=== PATIENT | male | born 1950 | race Hispanic/Latino ===

== ENCOUNTER 2019-11-09 03:21 | Inpatient (IN) | payer OTHER ==
[~2019-11-09] VITALS: Ht 154.9 cm; Wt 48.4 kg
[2019-11-09 03:25] VITALS: BP 147/92
[2019-11-09 05:30] LABS: HEMATOCRIT 28.3 % (42-54); MEAN CORPUSCULAR HEMOGLOBIN 29.4 pg (27.0-33.0); MEAN CORPUSCULAR HGB CONC 33.6 g/dL (32.0-36.0); MEAN CORPUSCULAR VOLUME 87.6 fL (79-99); PLATELET COUNT (AUTO) 172 K/uL (130-400); RED BLOOD CELL COUNT(AUTO) 3.23 MIL/uL (4.50-6.20); RED CELL DISTRIBUTION WIDTH 15.3 % (11.0-15.5); WHITE BLOOD COUNT (AUTO) 10.3 K/uL (4.8-10.8)
[2019-11-09 05:33] LABS: HEMOGLOBIN A1C 6.7 % (4.0-6.0)
[2019-11-09 05:34] LABS: INR 0.88 (0.85-1.15); PARTIAL THROMBOPLASTIN TIME 30.3 SEC (26.3-35.5); PROTHROMBIN TIME 9.5 SEC (9.6-11.6)
[2019-11-09 05:40] LABS: ALBUMIN 2.6 g/dL (3.5-5.0); BILIRUBIN,TOTAL 0.2 mg/dL (0.2-1.0); CREATININE 1.4 mg/dL (0.5-1.5); POTASSIUM 3.7 mmol/L (3.5-5.1); TOTAL PROTEIN, SERUM 5.4 g/dL (6.0-8.3)
[2019-11-09 05:55] LABS: B-TYPE NATRIURETIC PEPTIDE 1560 pg/mL (0-100)
[2019-11-09] MEDS ORDERED: METOPROLOL TARTRATE 25 MG TAB PO SCH (07:30)
[2019-11-09 08:00] VITALS: BP 196/100
[2019-11-09] MEDS ORDERED: CEFAZOLIN SODIUM 1 GM VIAL IVP PRN (08:00)
[2019-11-09 08:05] VITALS: BP 168/88
[2019-11-09 08:15] LABS: ABG BASE EXCESS 5.7 mmol/L (-2.0-3.0); ABG HCO3 31.1 mmol/L (21.0-28.0); ABG OXYGEN SATURATION 97.1 % (95.0-99.0); ABG PCO2 48 mmHg (35-48)
[2019-11-09] MEDS ORDERED: METHYLPREDNISOLONE SOD SUCC 125MG/2ML VIAL IVP SCH (09:30)
[2019-11-09] MEDS ORDERED: FUROSEMIDE 10 MG/ML 4ML VIAL IV SCH (10:00)
[2019-11-09] MEDS: ASPIRIN 325MG EC TAB 325 MG TABLET.DR PO SCH (11:01)
[2019-11-09 12:01] VITALS: BP 128/93
[2019-11-09 16:12] VITALS: BP 153/97
--- NOTE | 2019-11-09 17:12 | NUR ---
DC PLAN VISITED WITH PATIENT. PATIENT LIVES WITH SPOUSE. INDEPENDENT ABLE TO PERFORM ADL'S. PATIENT HAS NO SERVICES OR DME'S. PATIENT TRANSFER FROM [facility] FOR CABG BUT HAVING SOB ON . PER PATIENT DOES GO TO A CLINIC BUT CAN NOT REMEMBER WHERE. PATIENT IS UNDOCUMENTED NO MEDICARE. GAVE LOW INCOME CLINIC INFO AND MEDICATION INFORMATION. Addendum: 11/09/19 at 1714 by LUKAS ABDI RN CM Amended: Links added.
[2019-11-09] MEDS: METHYLPREDNISOLONE SOD SUCC 40MG/ML 1ML IVP SCH ×2 (17:51→23:37)
[2019-11-09] MEDS: FUROSEMIDE 10 MG/ML 4ML VIAL IV SCH (17:52)
[2019-11-09 19:40] VITALS: BP 160/72
[2019-11-09 20:28] LABS: ABG BASE EXCESS 3.1 mmol/L (-2.0-3.0); ABG HCO3 26.3 mmol/L (21.0-28.0); ABG OXYGEN SATURATION 98.6 % (95.0-99.0); ABG PCO2 36 mmHg (35-48)
[2019-11-09] MEDS ORDERED: FAMOTIDINE 20MG TAB 20 MG TAB PO SCH (21:00)
[2019-11-10] VITALS (69 sets, daily range): BP systolic 68–213; BP diastolic 37–204
[2019-11-10 03:43] LABS: BASOPHILS % (AUTO) 0.1 % (0.0-5.0); MEAN CORPUSCULAR HEMOGLOBIN 29.8 pg (27.0-33.0); MEAN CORPUSCULAR VOLUME 87.7 fL (79-99); MONOCYTES % (AUTO) 1.7 % (3.0-13.0); NEUTROPHILS % (AUTO) 94.6 % (40.0-77.0); PLATELET COUNT (AUTO) 169 K/uL (130-400); RED BLOOD CELL COUNT(AUTO) 3.42 MIL/uL (4.50-6.20); RED CELL DISTRIBUTION WIDTH 15.1 % (11.0-15.5); WHITE BLOOD COUNT (AUTO) 9.3 K/uL (4.8-10.8)
[2019-11-10 03:56] LABS: CREATININE 1.5 mg/dL (0.5-1.5); MAGNESIUM 2.1 mg/dL (1.80-2.40); POTASSIUM 4.1 mmol/L (3.5-5.1)
[2019-11-10] MEDS: FUROSEMIDE 10 MG/ML 4ML VIAL IV SCH (05:27)
--- NOTE | 2019-11-10 06:17 | NUR ---
patient alert and oriented. Denies chest pain or sob. Resting comfortably. NC 1-2L, 02 sats 100%. Will continue to monitor. Did use Bipap during the night a few hours.
[2019-11-10] MEDS ORDERED: NOREPINEPHRINE BITARTRATE 8 MG in DEXTROSE 5%-WATER 250 ML IV PRN (06:30)
[2019-11-10] MEDS ORDERED: EPINEPHRINE 10 MG in SODIUM CHLORIDE 0.9% 240 ML IV PRN (06:30)
[2019-11-10] MEDS ORDERED: AMINOCAPROIC ACID 15,000 MG in SODIUM CHLORIDE 0.9% 500ML 420 ML IV PRN (06:30)
[2019-11-10] MEDS ORDERED: PAPAVERINE HCL 30 MG/ML 2ML VIAL ONE (06:52)
[2019-11-10] MEDS ORDERED: CEFAZOLIN SODIUM 1 GM VIAL ONE (06:52)
[2019-11-10] MEDS ORDERED: SODIUM CHLORIDE 0.9% 1000ML 1,000 ML IV ONE (07:10)
[2019-11-10] MEDS ORDERED: EPINEPHRINE 1 MG/ML AMPULE ONE (07:37)
[2019-11-10] MEDS ORDERED: ESMOLOL HCL 10 MG/ML 10 ML VIAL ONE ×2 (07:37→07:39)
[2019-11-10] MEDS ORDERED: HEPARIN SODIUM 1000UNIT/ML 10ML VIAL ONE (07:37)
[2019-11-10] MEDS ORDERED: AMINOCAPROIC ACID 250 MG/ML 20 ML VIAL IV ONE (07:37)
[2019-11-10] MEDS ORDERED: LIDOCAINE PF 2% 5ML ABBOJECT ONE (07:37)
[2019-11-10] MEDS ORDERED: NOREPINEPHRINE BITARTRATE 1 MG/1 ML ML IV ONE (07:37)
[2019-11-10] MEDS ORDERED: PROTAMINE SULFATE 10 MG/ML 25ML VIAL IV ONE (07:37)
[2019-11-10] MEDS ORDERED: PROPOFOL 10 MG/ML 20ML VIAL IV ONE (07:37)
[2019-11-10] MEDS ORDERED: SODIUM BICARB 50MEQ 50ML VIAL ONE (07:37)
[2019-11-10] MEDS ORDERED: FENTANYL CITRATE PF 50 MCG/1 ML 20ML VIAL IJ ONE (07:38)
[2019-11-10] MEDS ORDERED: ROCURONIUM 10MG/1ML SYR 10 MG/ML ML ONE (07:38)
[2019-11-10] MEDS ORDERED: MIDAZOLAM HCL 1 MG/ML 2ML VIAL ONE (07:38)
[2019-11-10] MEDS ORDERED: ETOMIDATE 2 MG/ML 10 ML VIAL ONE (07:39)
[2019-11-10] MEDS ORDERED: AMIODARONE HCL 50 MG/ML 3 ML VIAL ONE (07:39)
[2019-11-10] MEDS ORDERED: VASOPRESSIN 20 UNITS/ML 1ML VIAL ONE (07:40)
[2019-11-10] MEDS ORDERED: GLYCOPYRROLATE 1 MG/5 ML SYRINGE ONE (07:46)
[2019-11-10] MEDS: METHYLPREDNISOLONE SOD SUCC 40MG/ML 1ML IVP SCH ×2 (08:00→15:27)
[2019-11-10 08:53] LABS: ABG BASE EXCESS 6.4 mmol/L (-2.0-3.0); ABG HCO3 29.6 mmol/L (21.0-28.0); ABG OXYGEN SATURATION 99.2 % (95.0-99.0); ABG PCO2 37 mmHg (35-48)
[2019-11-10] MEDS ORDERED: SODIUM CHLORIDE 0.9% 500ML 500 ML IV SCH (08:58)
[2019-11-10] MEDS ORDERED: SODIUM CHLORIDE 0.9% 1000ML 1,000 ML IV SCH (09:00)
[2019-11-10] MEDS ORDERED: MORPHINE SULFATE 4 MG/1ML SYG IV PRN (09:00)
[2019-11-10] MEDS ORDERED: AMINOCAPROIC ACID 15,000 MG in SODIUM CHLORIDE 0.9% 250 ML IV SCH (09:00)
[2019-11-10] MEDS ORDERED: TRAMADOL HCL 50 MG TABLET PO PRN (09:00)
[2019-11-10] MEDS ORDERED: DEXTROSE 50%-WATER 50 ML DISP.SYRIN IV PRN (09:00)
[2019-11-10] MEDS ORDERED: MORPHINE SULFATE 2 MG/ML 1ML SYG IV PRN (09:00)
[2019-11-10] MEDS ORDERED: GLUCAGON 1MG KIT 1 MG ML IM PRN (09:00)
[2019-11-10] MEDS ORDERED: POTASSIUM PHOS 15 mMOL+NS250ML 250 ML IV PRN (09:00)
[2019-11-10] MEDS ORDERED: EPINEPHRINE 2 MG in DEXTROSE 5%-WATER 250 ML IV PRN (09:00)
[2019-11-10] MEDS ORDERED: ONDANSETRON HCL 4 MG/2 ML VIAL IV PRN (09:00)
[2019-11-10] MEDS ORDERED: INSULIN REGULAR, HUMAN 3ML 100 UNIT in SODIUM CHLORIDE 0.9% 99 ML IV SCH ×2 (09:00)
[2019-11-10] MEDS ORDERED: NOREPINEPHRINE 4MG/NS 250ML 250 ML IV PRN (09:00)
[2019-11-10] MEDS ORDERED: ACETAMINOPHEN 650 MG SUPPOSITORY RC PRN (09:00)
[2019-11-10] MEDS ORDERED: MAGNESIUM 2GM PREMIX 50ML 50 ML IV PRN (09:00)
[2019-11-10] MEDS ORDERED: ACETAMINOPHEN 325 MG TAB PO PRN ×2 (09:00)
[2019-11-10] MEDS ORDERED: NITROGLYCERIN 50 MG/D5% WATER 250 BOT IV SCH (09:00)
[2019-11-10] MEDS: FUROSEMIDE 20 MG TABLET PO SCH ×2 (09:00→16:19)
[2019-11-10] MEDS: FAMOTIDINE/PF 20 MG/2 ML VIAL IV SCH ×2 (09:00→21:03)
[2019-11-10] MEDS ORDERED: PROPOFOL 1000 MG/100 ML 100 ML IV PRN (09:00)
[2019-11-10] MEDS: ASPIRIN 325MG EC TAB 325 MG TABLET.DR PO SCH (09:00)
[2019-11-10] MEDS ORDERED: SODIUM CHLORIDE 0.9% 250 ML IV PRN (09:00)
[2019-11-10] MEDS ORDERED: ALBUMIN (HUMAN) 5% 250 ML IV PRN (09:00)
[2019-11-10] MEDS ORDERED: SODIUM CHLORIDE 0.9% 10 ML VIAL IVP PRN (09:00)
[2019-11-10] MEDS ORDERED: SODIUM BICARB 50MEQ 50ML VIAL IV PRN (09:00)
[2019-11-10] MEDS ORDERED: NITROGLYCERIN 50 MG/D5% WATER 1 BOT ONE (09:27)
[2019-11-10] MEDS ORDERED: OCTYL 2-CYANOACRYLATE 1 EACH TP ONE (10:06)
[2019-11-10 10:17] LABS: ABG BASE EXCESS 0.2 mmol/L (-2.0-3.0); ABG OXYGEN SATURATION 99.1 % (95.0-99.0); ABG PCO2 36 mmHg (35-48)
[2019-11-10] MEDS ORDERED: HEPARIN SODIUM 10000 UNIT/ML 1ML VIAL IJ ONE (10:41)
--- NOTE | 2019-11-10 11:00 | NUR ---
PATIENT ARRIVED FROM OR TO CVR 213. PATIENT INTUBATED, ARTERIAL LINE LEFT RADIAL, CHEST TUBES X2, OMER CATH, SWAN GAWNZ. IV DRIPS LEVOPHED, EPI, AMICAR. PATIENT SET UP IN ROOM.
[2019-11-10 11:19] LABS: HEMATOCRIT 26.1 % (42-54); MEAN CORPUSCULAR HGB CONC 34.1 g/dL (32.0-36.0); MEAN CORPUSCULAR VOLUME 87.9 fL (79-99); PLATELET COUNT (AUTO) 162 K/uL (130-400); RED BLOOD CELL COUNT(AUTO) 2.97 MIL/uL (4.50-6.20); RED CELL DISTRIBUTION WIDTH 15.3 % (11.0-15.5); WHITE BLOOD COUNT (AUTO) 16.9 K/uL (4.8-10.8)
[2019-11-10 11:31] LABS: INR 1.03 (0.85-1.15); PARTIAL THROMBOPLASTIN TIME 25.5 SEC (26.3-35.5); PROTHROMBIN TIME 11.1 SEC (9.6-11.6)
[2019-11-10 11:36] LABS: CREATININE 1.4 mg/dL (0.5-1.5); MAGNESIUM 1.7 mg/dL (1.80-2.40); PHOSPHORUS 4.8 mg/dL (2.5-4.9); POTASSIUM 3.2 mmol/L (3.5-5.1)
[2019-11-10 11:40] LABS: ABG HCO3 26.2 mmol/L (21.0-28.0); ABG PCO2 39 mmHg (35-48)
[2019-11-10] MEDS: POTASSIUM CHLORIDE 20MEQ/100ML 100 ML IV PRN ×2 (12:05→16:18)
[2019-11-10] MEDS: CEFAZOLIN SODIUM 1 GM VIAL IV SCH ×2 (13:32→21:03)
--- NOTE | 2019-11-10 14:45 | NUR ---
VENTILATOR WEANING TRIALS: SIMV RATE DROPPED TO 6. TOLERATED WELL.
--- NOTE | 2019-11-10 15:00 | NUR ---
VENTILATOR WEANING TRIALS: SIMV DROPPED TO 4, TOLERATING WELL.
--- NOTE | 2019-11-10 15:30 | NUR ---
VENTILATOR WEANING TRIALS: CPAP 10/5, TOLERATING WELL.
[2019-11-10 15:40] LABS: BASOPHILS % (AUTO) 0.1 % (0.0-5.0); HEMATOCRIT 26.3 % (42-54); LYMPHOCYTES % (AUTO) 4.8 % (21.0-51.0); MEAN CORPUSCULAR HEMOGLOBIN 29.2 pg (27.0-33.0); MEAN CORPUSCULAR HGB CONC 32.7 g/dL (32.0-36.0); MEAN CORPUSCULAR VOLUME 89.2 fL (79-99); MONOCYTES % (AUTO) 4.1 % (3.0-13.0); PLATELET COUNT (AUTO) 172 K/uL (130-400); RED BLOOD CELL COUNT(AUTO) 2.95 MIL/uL (4.50-6.20); RED CELL DISTRIBUTION WIDTH 15.4 % (11.0-15.5); WHITE BLOOD COUNT (AUTO) 25.4 K/uL (4.8-10.8)
--- NOTE | 2019-11-10 15:45 | NUR ---
VENTILATOR WEANING TRIALS: CPAP 5/5. TOLERATING WELL.
[2019-11-10 15:53] LABS: CREATININE 1.6 mg/dL (0.5-1.5); MAGNESIUM 2.9 mg/dL (1.80-2.40); POTASSIUM 3.4 mmol/L (3.5-5.1)
[2019-11-10 16:11] LABS: ABG BASE EXCESS 3.4 mmol/L (-2.0-3.0); ABG HCO3 27.9 mmol/L (21.0-28.0); ABG OXYGEN SATURATION 98.9 % (95.0-99.0); ABG PCO2 42 mmHg (35-48)
--- NOTE | 2019-11-10 16:45 | NUR ---
PATIENT COMPLETED VENTILATOR WEANING TRIALS. PATIENT EXTUBATED PER MD ORDER. PATIENT ON AN AEROSOL MASK 40%
[2019-11-10] MEDS: CALCIUM GLUCONATE 1 GM in SODIUM CHLORIDE 0.9% 50 ML IV PRN (18:20)
[2019-11-10 19:51] LABS: ABG BASE EXCESS 0.6 mmol/L (-2.0-3.0); ABG HCO3 25.2 mmol/L (21.0-28.0); ABG OXYGEN SATURATION 97.3 % (95.0-99.0); ABG PCO2 41 mmHg (35-48)
[2019-11-11] VITALS (85 sets, daily range): BP systolic 96–213; BP diastolic 45–113
[2019-11-11] MEDS: METHYLPREDNISOLONE SOD SUCC 40MG/ML 1ML IVP SCH ×4 (00:38→23:42)
[2019-11-11 04:56] LABS: HEMATOCRIT 24.7 % (42-54); MEAN CORPUSCULAR HEMOGLOBIN 29.4 pg (27.0-33.0); MEAN CORPUSCULAR HGB CONC 33.2 g/dL (32.0-36.0); MEAN CORPUSCULAR VOLUME 88.5 fL (79-99); PLATELET COUNT (AUTO) 139 K/uL (130-400); RED BLOOD CELL COUNT(AUTO) 2.79 MIL/uL (4.50-6.20); RED CELL DISTRIBUTION WIDTH 15.7 % (11.0-15.5); WHITE BLOOD COUNT (AUTO) 20.9 K/uL (4.8-10.8)
[2019-11-11 05:00] LABS: ABG BASE EXCESS 1.3 mmol/L (-2.0-3.0); ABG HCO3 25.2 mmol/L (21.0-28.0); ABG OXYGEN SATURATION 98.1 % (95.0-99.0); ABG PCO2 38 mmHg (35-48)
[2019-11-11 05:14] LABS: CREATININE 1.8 mg/dL (0.5-1.5); MAGNESIUM 2.5 mg/dL (1.80-2.40); PHOSPHORUS 5.3 mg/dL (2.5-4.9); POTASSIUM 4.3 mmol/L (3.5-5.1)
[2019-11-11] MEDS: CEFAZOLIN SODIUM 1 GM VIAL IV SCH (05:24)
[2019-11-11] MEDS: CALCIUM GLUCONATE 1 GM in SODIUM CHLORIDE 0.9% 50 ML IV PRN (05:26)
[2019-11-11 05:44] LABS: INR 0.94 (0.85-1.15); PARTIAL THROMBOPLASTIN TIME 27.9 SEC (26.3-35.5); PROTHROMBIN TIME 10.2 SEC (9.6-11.6)
[2019-11-11] MEDS ORDERED: METOPROLOL TARTRATE 25 MG TAB ONE (08:01)
[2019-11-11] MEDS: ASPIRIN 325MG EC TAB 325 MG TABLET.DR PO SCH (08:19)
[2019-11-11] MEDS: FUROSEMIDE 20 MG TABLET PO SCH ×2 (08:19→17:29)
[2019-11-11] MEDS: METOPROLOL TARTRATE 25 MG TAB PO SCH ×2 (08:19→21:02)
[2019-11-11] MEDS: FAMOTIDINE/PF 20 MG/2 ML VIAL IV SCH ×2 (08:20→21:02)
[2019-11-11] MEDS: HYDRALAZINE HCL 20 MG/ML VIAL IV PRN (13:36)
--- NOTE | 2019-11-11 14:09 | NUR ---
RD NOTIFICATION S/P CABG DUE TO CAD ON 11/09. PT RECOVERING COMFORTABLY AT TIME OF VISIT. DIET: CLEAR LIQUIDS/ CVR DIET. NO COMPLAINTS OF N/V/C/D AT THIS TIME. PT STATED HAVING DIFFICULTIES CHEWING FOOD DUE TO MISSING TEETH. SKIN IS INTACT. LABS AND MEDS REVIEWED. RD RECOMMENDS TO ADVANCE DIET TOLERATED MODIFY FOOD TEXTURE DUE TO MISSING TEETH; MECHANICAL SOFT/CHOPPED OR FINE CHOPPED PLZ RD WILL CONTINUE TO MONITOR AND FOLLOW UP, THANK YOU. Addendum: 11/11/19 at [address] Amended: Links added.
[2019-11-11] MEDS: TRAMADOL HCL 50 MG TABLET PO PRN (15:20)
[2019-11-11] MEDS: INSULIN HUMULIN R 100 UNIT/ML 3ML SQ SCH ×2 (15:57→21:00)
[2019-11-12] VITALS (18 sets, daily range): BP systolic 95–162; BP diastolic 57–95
[2019-11-12 04:12] LABS: HEMATOCRIT 21.7 % (42-54); MEAN CORPUSCULAR HEMOGLOBIN 30.2 pg (27.0-33.0); MEAN CORPUSCULAR HGB CONC 33.6 g/dL (32.0-36.0); MEAN CORPUSCULAR VOLUME 89.7 fL (79-99); PLATELET COUNT (AUTO) 105 K/uL (130-400); RED BLOOD CELL COUNT(AUTO) 2.42 MIL/uL (4.50-6.20); RED CELL DISTRIBUTION WIDTH 16.1 % (11.0-15.5); WHITE BLOOD COUNT (AUTO) 14.5 K/uL (4.8-10.8)
[2019-11-12 04:24] LABS: POTASSIUM 4.6 mmol/L (3.5-5.1)
[2019-11-12] MEDS: INSULIN HUMULIN R 100 UNIT/ML 3ML SQ SCH ×4 (06:26→20:48)
[2019-11-12] MEDS: METOPROLOL TARTRATE 25 MG TAB PO SCH ×2 (08:35→20:40)
[2019-11-12] MEDS: METHYLPREDNISOLONE SOD SUCC 40MG/ML 1ML IVP SCH ×3 (08:35→23:35)
[2019-11-12] MEDS: FAMOTIDINE/PF 20 MG/2 ML VIAL IV SCH ×2 (08:35→20:44)
[2019-11-12] MEDS: FUROSEMIDE 20 MG TABLET PO SCH (08:35)
[2019-11-12] MEDS: ASPIRIN 325MG EC TAB 325 MG TABLET.DR PO SCH (08:36)
[2019-11-12] MEDS: SODIUM CHLORIDE 0.9% 1000ML 1,000 ML IV SCH ×2 (09:00→20:45)
[2019-11-12] MEDS: ATORVASTATIN CALCIUM 20 MG TABLET PO SCH (20:40)
[2019-11-13] VITALS (7 sets, daily range): BP systolic 121–175; BP diastolic 61–92
[2019-11-13 05:19] LABS: HEMATOCRIT 21.5 % (42-54); MEAN CORPUSCULAR HEMOGLOBIN 29.6 pg (27.0-33.0); PLATELET COUNT (AUTO) 111 K/uL (130-400); RED BLOOD CELL COUNT(AUTO) 2.47 MIL/uL (4.50-6.20); WHITE BLOOD COUNT (AUTO) 13.8 K/uL (4.8-10.8)
[2019-11-13 05:39] LABS: CREATININE 1.9 mg/dL (0.5-1.5); MAGNESIUM 2.2 mg/dL (1.80-2.40); POTASSIUM 4.4 mmol/L (3.5-5.1)
[2019-11-13] MEDS: INSULIN HUMULIN R 100 UNIT/ML 3ML SQ SCH ×4 (05:44→20:58)
[2019-11-13] MEDS: METHYLPREDNISOLONE SOD SUCC 40MG/ML 1ML IVP SCH ×2 (08:59→17:40)
[2019-11-13] MEDS: FAMOTIDINE/PF 20 MG/2 ML VIAL IV SCH ×2 (08:59→20:57)
[2019-11-13] MEDS: METOPROLOL TARTRATE 25 MG TAB PO SCH ×2 (09:00→20:57)
[2019-11-13] MEDS: ENOXAPARIN SODIUM 30 MG/0.3 ML SQ SCH (09:00)
[2019-11-13] MEDS: ASPIRIN 325MG EC TAB 325 MG TABLET.DR PO SCH (09:00)
[2019-11-13] MEDS: AMLODIPINE BESYLATE 5 MG TAB PO SCH (11:04)
--- NOTE | 2019-11-13 12:27 | NUR ---
INFORMED JACOB ANDRES, PATIENT WOULD BENEFIT FROM [facility] TO IMPROVE CURRENT FUNCTIONAL MOBILITY. PATIENT DESATURATED TO 87% ON RA AFTER AMBULATION WHICH CAME UP TO 93% WITH 2LNC. Addendum: 11/13/19 at 1228 by ERIC HERBERT PT Amended: Links added.
[2019-11-13] MEDS: ATORVASTATIN CALCIUM 20 MG TABLET PO SCH (20:57)
[2019-11-14] MEDS: METHYLPREDNISOLONE SOD SUCC 40MG/ML 1ML IVP SCH ×3 (00:03→16:43)
[2019-11-14] MEDS: SODIUM CHLORIDE 0.9% 1000ML 1,000 ML IV SCH (01:00)
[2019-11-14 04:00] VITALS: BP 152/96
[2019-11-14 04:29] LABS: HEMATOCRIT 23.1 % (42-54); MEAN CORPUSCULAR HEMOGLOBIN 29.8 pg (27.0-33.0); MEAN CORPUSCULAR HGB CONC 32.5 g/dL (32.0-36.0); MEAN CORPUSCULAR VOLUME 91.7 fL (79-99); NUCLEATED RED BLOOD CELLS 0.1 % (0.0-0.19); PLATELET COUNT (AUTO) 128 K/uL (130-400); RED BLOOD CELL COUNT(AUTO) 2.52 MIL/uL (4.50-6.20); RED CELL DISTRIBUTION WIDTH 16.1 % (11.0-15.5); WHITE BLOOD COUNT (AUTO) 15.9 K/uL (4.8-10.8)
[2019-11-14 04:45] LABS: CREATININE 1.4 mg/dL (0.5-1.5)
[2019-11-14] MEDS: INSULIN HUMULIN R 100 UNIT/ML 3ML SQ SCH ×4 (06:44→21:07)
[2019-11-14 07:00] VITALS: BP 162/90
[2019-11-14] MEDS: METOPROLOL TARTRATE 25 MG TAB PO SCH ×2 (08:57→21:03)
[2019-11-14] MEDS: AMLODIPINE BESYLATE 5 MG TAB PO SCH (08:58)
[2019-11-14] MEDS: ENOXAPARIN SODIUM 30 MG/0.3 ML SQ SCH (08:58)
[2019-11-14] MEDS: ASPIRIN 325MG EC TAB 325 MG TABLET.DR PO SCH (08:58)
[2019-11-14] MEDS: FAMOTIDINE/PF 20 MG/2 ML VIAL IV SCH ×2 (08:58→21:03)
[2019-11-14] MEDS ORDERED: FUROSEMIDE 10 MG/ML 4ML VIAL IV SCH (10:30)
[2019-11-14 11:00] VITALS: BP 193/82
[2019-11-14] MEDS: IPRATROPIUM/ALBUTEROL SULFATE 3 ML SOLUTION IH SCH ×3 (11:57→23:33)
[2019-11-14 16:07] VITALS: BP 184/72
--- NOTE | 2019-11-14 18:50 | NUR ---
PATIENT WAS SEEN BY DR. CRAWLEY AND DR. DEE TODAY. HE IS PENDING HOME O2 EVAL. PATIENT HAS NOT BEEN COMPLIANT WITH IS USE HE IS ONLY ABLE TO PULL 500ML EACH TIME. INFORMED DR. CRAWLEY IN AM THAT PATIENT STILL HAS ADVENTITIOUS BREATH SOUNDS ON AUSCULTATION. IV FLUID WAS DISCONTINUED. BREATHING TREATMENTS STARTED AND 1 X DOSE OF LASIX ADMINISTERED. ENCOURAGED PATIENT TO AMBULATE MORE. PER DR. CRAWLEY, PATIENT MAY HAVE TO STAY FOR A COUPLE MORE DAYS. MANAGER DISH WILY SPOKE WITH ZION CHOW ABOUT HOME O2 PATIENT IS SELF PAY. MANAGER DISH WILL HAVE TO SPEAK WITH PATIENT ABOUT POSSIBLE RATES ON HOME O2 FOR PERSONAL PURCHASE.
[2019-11-14 19:33] VITALS: BP 166/76
[2019-11-14] MEDS: ATORVASTATIN CALCIUM 20 MG TABLET PO SCH (21:03)
[2019-11-15] VITALS (8 sets, daily range): BP systolic 107–190; BP diastolic 54–81
[2019-11-15] MEDS: METHYLPREDNISOLONE SOD SUCC 40MG/ML 1ML IVP SCH ×3 (00:03→17:23)
[2019-11-15] MEDS: HYDRALAZINE HCL 20 MG/ML VIAL IV PRN ×2 (00:03→11:46)
[2019-11-15 04:43] LABS: HEMATOCRIT 21.4 % (42-54); MEAN CORPUSCULAR HEMOGLOBIN 29.5 pg (27.0-33.0); MEAN CORPUSCULAR HGB CONC 33.6 g/dL (32.0-36.0); MEAN CORPUSCULAR VOLUME 87.7 fL (79-99); NUCLEATED RED BLOOD CELLS 0.4 % (0.0-0.19); PLATELET COUNT (AUTO) 157 K/uL (130-400); RED BLOOD CELL COUNT(AUTO) 2.44 MIL/uL (4.50-6.20); RED CELL DISTRIBUTION WIDTH 15.9 % (11.0-15.5)
[2019-11-15 04:57] LABS: CREATININE 1.5 mg/dL (0.5-1.5); POTASSIUM 3.2 mmol/L (3.5-5.1)
[2019-11-15] MEDS: IPRATROPIUM/ALBUTEROL SULFATE 3 ML SOLUTION IH SCH ×4 (05:35→23:30)
[2019-11-15] MEDS: INSULIN HUMULIN R 100 UNIT/ML 3ML SQ SCH ×4 (06:41→21:00)
[2019-11-15] MEDS: BUDESONIDE 0.5 MG/2 ML INH IH SCH (07:03)
--- NOTE | 2019-11-15 08:30 | NUR ---
AM ASSESSMENT PT SITTING IN CARDIAC RECLINER, WATCHING TV. SPA SPEAKING ONLY. A/O X 3. ANXIOUS, WANTING TO GO HOME. PT REQUESTING TO HAVE MORE COFFEE & WATER. PT REMINDED 1.2L FLUID RESTRICTION IN PLACE ORDERED BY . SOB ON EXERTION. LABORED BREATHING WHILE SITTING IN RECLINER. O2 NC @ 2L. DENIES CHEST PAIN OR DISCOMFORT. DENIES PALPITATIONS. TELE: SR PACs. STERNAL INCISION WELL APPROX, NO DRAINAGE NOTED. STERNAL PRECAUTIONS REINFORCED @ THIS TIME. DENIES N/V AND/OR DIARRHEA. BLE INCISION WELL APPROX, NO DRAINAGE NOTED. IS 500-750 ML/ REINFORCED IMPORTANCE & PURPOSE OF IS. UP W/ASSISTANCE. INSTRUCTED TO CALL FOR ASSISTANCE. CALL ANDERS W/IN REACH. PT CURRENTLY DRESSED IN CLOTHES FROM HOME. HOSPITAL GOWN ON TOP OF CLOTHES FROM HOME.
[2019-11-15] MEDS: METOPROLOL TARTRATE 25 MG TAB PO SCH ×2 (09:45→22:34)
[2019-11-15] MEDS: ASPIRIN 325MG EC TAB 325 MG TABLET.DR PO SCH (09:45)
[2019-11-15] MEDS: AMLODIPINE BESYLATE 5 MG TAB PO SCH (09:46)
[2019-11-15] MEDS: FAMOTIDINE/PF 20 MG/2 ML VIAL IV SCH ×2 (09:46→22:34)
[2019-11-15] MEDS: ENOXAPARIN SODIUM 30 MG/0.3 ML SQ SCH (09:49)
[2019-11-15] MEDS ORDERED: NICO-704 TD (10:11)
[2019-11-15] MEDS ORDERED: FURO40TA5 PO (10:11)
[2019-11-15] MEDS ORDERED: ATOR40TA69 PO (10:11)
[2019-11-15] MEDS ORDERED: BUPR-47 PO (10:11)
[2019-11-15] MEDS ORDERED: AEC81 PO (10:11)
[2019-11-15] MEDS ORDERED: [UNRECOGNIZED DRUG - OTHER] PO (10:11)
[2019-11-15] MEDS ORDERED: LISI-617 PO (10:11)
[2019-11-15] MEDS ORDERED: [UNRECOGNIZED DRUG - OTHER] PO (10:11)
[2019-11-15] MEDS: TRAMADOL HCL 50 MG TABLET PO PRN (10:31)
[2019-11-15] MEDS ORDERED: POTASSIUM CHLORIDE 10% ELIXIR 20 MEQ/15 ML UDCUP PO PRN (10:45)
[2019-11-15] MEDS: POTASSIUM CHLORIDE 20 MEQ ERTAB PO PRN ×3 (11:44→15:58)
--- NOTE | 2019-11-15 16:05 | NUR ---
DISCHARGE VERBAL & WRITTEN DISCHARGE INSTRUCTIONS REVIEWED & GIVEN TO PT & PT 'S DAUGHTER IN [place]. QUESTIONS ENCOURAGED & CLARIFIED. PROPER CARE & PREVENTION OF UTI REVIEWED. PT TO CONTINUE HOME MEDICATIONS. NO NEWE PRESCRIPTIONS. PT TO F/U W/PCP IN 3 DAYS. TELE DONOVAN REMOVE. IV DC'D @ THIS TIME. PT & DAUGHTER TO GATHER PERSONAL BELONGINGS. WILL NOTIFY STAFF WHEN READY TO BE TAKEN TO PRIVATE VEHICLE.
--- NOTE | 2019-11-15 16:30 | NUR ---
DISCHARGE PT TAKEN TO PRIVATE VEHICLE VIA WC BY MYSELF, Ludivina NINA RN. NO DISTRESS NOTED
[2019-11-15] MEDS: ATORVASTATIN CALCIUM 20 MG TABLET PO SCH (22:34)
[2019-11-16] MEDS: METHYLPREDNISOLONE SOD SUCC 40MG/ML 1ML IVP SCH ×3 (00:46→16:00)
[2019-11-16 03:50] VITALS: BP 135/61
[2019-11-16 04:24] LABS: MEAN CORPUSCULAR HEMOGLOBIN 29.7 pg (27.0-33.0); MEAN CORPUSCULAR HGB CONC 33.7 g/dL (32.0-36.0); MEAN CORPUSCULAR VOLUME 88.2 fL (79-99); NUCLEATED RED BLOOD CELLS 0.6 % (0.0-0.19); PLATELET COUNT (AUTO) 181 K/uL (130-400); RED BLOOD CELL COUNT(AUTO) 2.29 MIL/uL (4.50-6.20); RED CELL DISTRIBUTION WIDTH 16.1 % (11.0-15.5); WHITE BLOOD COUNT (AUTO) 12.7 K/uL (4.8-10.8)
[2019-11-16 04:29] LABS: HEMATOCRIT 20.2 % (42-54)
[2019-11-16 04:48] LABS: CREATININE 1.6 mg/dL (0.5-1.5); POTASSIUM 4.1 mmol/L (3.5-5.1)
[2019-11-16] MEDS: INSULIN HUMULIN R 100 UNIT/ML 3ML SQ SCH ×3 (06:24→16:30)
--- NOTE | 2019-11-16 06:45 | NUR ---
DR CRAWLEY NOTIFIED OF HG 6.9. PER MD TRANSFUSE 1 UNIT OF BLOOD
[2019-11-16 06:48] LABS: MEAN CORPUSCULAR HEMOGLOBIN 30.1 pg (27.0-33.0); MEAN CORPUSCULAR HGB CONC 33.2 g/dL (32.0-36.0); MEAN CORPUSCULAR VOLUME 90.8 fL (79-99); NUCLEATED RED BLOOD CELLS 0.8 % (0.0-0.19); PLATELET COUNT (AUTO) 184 K/uL (130-400); RED BLOOD CELL COUNT(AUTO) 2.29 MIL/uL (4.50-6.20); RED CELL DISTRIBUTION WIDTH 16.2 % (11.0-15.5); WHITE BLOOD COUNT (AUTO) 11.9 K/uL (4.8-10.8)
[2019-11-16 06:50] LABS: HEMATOCRIT 20.8 % (42-54)
[2019-11-16] MEDS: IPRATROPIUM/ALBUTEROL SULFATE 3 ML SOLUTION IH SCH ×2 (06:53→11:25)
[2019-11-16] MEDS: BUDESONIDE 0.5 MG/2 ML INH IH SCH (06:53)
[2019-11-16 07:36] VITALS: BP 174/71
[2019-11-16] MEDS: METOPROLOL TARTRATE 25 MG TAB PO SCH (08:34)
[2019-11-16] MEDS: FAMOTIDINE/PF 20 MG/2 ML VIAL IV SCH (08:34)
[2019-11-16] MEDS: AMLODIPINE BESYLATE 5 MG TAB PO SCH (08:34)
[2019-11-16] MEDS: ASPIRIN 325MG EC TAB 325 MG TABLET.DR PO SCH (08:35)
[2019-11-16] MEDS: ENOXAPARIN SODIUM 30 MG/0.3 ML SQ SCH (08:36)
--- NOTE | 2019-11-16 11:05 | NUR ---
RD FOLLOW UP RD ADDED MECHANICAL SOFT/CHOPPED/GROUND DUE TO MISSING TEETH, PER PT REQUEST. D/C CVR DIET. Addendum: 11/16/19 at [address] Amended: Links added.
[2019-11-16 11:43] VITALS: BP 167/74
[2019-11-16] MEDS ORDERED: AMLO5TAB4 PO (14:38)
[2019-11-16] MEDS ORDERED: PRED20TA3 PO (14:38)
[2019-11-16] MEDS ORDERED: METO25 PO (15:49)
--- NOTE | 2019-11-16 19:43 | NUR ---
DISCHARGE INSTRUCTIONS/INFORMATION GIVEN TO PATIENT AND NEPHEW. TEACH BACK METHOD USED TO EDUCATE BOTH ON NEW MEDICATIONS PRESCRIBED, STERNAL PRECAUTIONS, WOUND CARE, DIET, S/S TO MONITOR, WHEN TO CALL MD, AND F/U APPOINTMENTS. PIV REMOVED. TIP WAS INTACT. TELE REMOVED AND RETURNED. SUTURES REMOVED ASEPTICALLY AND PATIENT TOLERATED. ALL BELONGINGS PACKED. PATIENT LOST HIS PHONE TODAY. HE SAID THAT THE LAST TIME HE SAW IT WAS AROUND 2AM. 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 ALEXANDER AND I CHECKED HIS BED TWICE TODAY LOOKING UNDER THE MATTRESS AND UNDER BED BUT NO PHONE WAS SEEN. [facility]S CALLED AND SPOKE WITH ELPIDIO. SHE SAID THAT IF PHONE WAS LEFT IN THE [place], THEY WON'T HEAR FROM [facility] Aortic [facility] UNTIL FRIDAY. ELPIDIO SAID THAT SHE WILL SEND AN EMAIL TO KEEP AN EYE ON THE ELECTRONIC DEVICE. PATIENT HAS A BLACK SMART PHONE. HE DOES NOT KNOW THE BRAND.
== END 2019-11-16 19:00 | disposition home or self-care (01) | DRG 235 ==
LOC: 2DH 03:21 → 2CV 11-10 10:19 → 2BH 11-11 07:38 → 2DH 11-12 12:20
PROVIDERS: ADMIT Internal Medicine Critical Care Medicine; ATTEND Internal Medicine Critical Care Medicine
PROC: 5A09357 Assistance with Respiratory Ventilation, Less than 24 Consecutive Hours, Continuous Positive Airway Pressure (ICD-10-PCS; 2019-11-09)
PROC: 5A09357 Assistance with Respiratory Ventilation, Less than 24 Consecutive Hours, Continuous Positive Airway Pressure (ICD-10-PCS; 2019-11-10)
PROC: 02100Z9 Bypass Coronary Artery, One Artery from Left Internal Mammary, Open Approach (ICD-10-PCS; principal; 2019-11-10 08:06)
PROC: 021009W Bypass Coronary Artery, One Artery from Aorta with Autologous Venous Tissue, Open Approach (ICD-10-PCS; 2019-11-10 08:06)
PROC: 06BQ4ZZ Excision of Left Saphenous Vein, Percutaneous Endoscopic Approach (ICD-10-PCS; 2019-11-10 08:06)
PROC: 30233N1 Transfusion of Nonautologous Red Blood Cells into Peripheral Vein, Percutaneous Approach (ICD-10-PCS; 2019-11-11)
DX: I25.10 Atherosclerotic heart disease of native coronary artery without angina pectoris (principal); I21.4 Non-ST elevation (NSTEMI) myocardial infarction; J96.01 Acute respiratory failure with hypoxia; E43 Unspecified severe protein-calorie malnutrition; I50.33 Acute on chronic diastolic (congestive) heart failure; J96.02 Acute respiratory failure with hypercapnia; E87.1 Hypo-osmolality and hyponatremia; J44.1 Chronic obstructive pulmonary disease with (acute) exacerbation; I11.0 Hypertensive heart disease with heart failure; I16.0 Hypertensive urgency; E78.00 Pure hypercholesterolemia, unspecified; E78.5 Hyperlipidemia, unspecified; F17.200 Nicotine dependence, unspecified, uncomplicated; N28.9 Disorder of kidney and ureter, unspecified; I25.2 Old myocardial infarction; Z79.82 Long term (current) use of aspirin; Z79.899 Other long term (current) drug therapy; Z68.20 Body mass index [BMI] 20.0-20.9, adult
CPT/HCPCS: 36415; 36430; 36600; 71045; 80048; 80053; 80061; 82330; 82435; 82803; 82947; 82948; 83036; 83605; 83735; 83880; 84100; 84132; 84295; 85018; 85025; 85027; 85347; 85610; 85730; 86850; 86900; 86901; 86922; 93005; 93306; 93356; 93880; 94002; 94010; 94150; 94640; 94660; 94664; 97039; A4357; A7048; G0378; J0171; J0282; J0360; J0610; J0690; J1644; J1650; J1815; J1940; J2001; J2250; J2405; J2440; J2704; J2720; J2920; J2930; J3010; J3475; J3480; J3490; J7030; J7040; J7060; J7070; J7120; P9016